=== PATIENT | female | born 1990 | race African-American/Black ===

== ENCOUNTER 2017-08-12 08:06 | Emergency (ER) | payer MEDICAID ==
[~2017-08-12] VITALS: Ht 180.3 cm; Wt 128.0 kg
[2017-08-12 08:18] VITALS: BP 126/83
[2017-08-12 09:49] LABS: CLARITY URINE CLOUDY (CLEAR); COLOR URINE DARK YELLOW (YELLOW); KETONES URINE TRACE (NEGATIVE); LEUKOCYTE ESTERASE URINE 2+ (NEGATIVE); NITRITE URINE NEGATIVE (NEGATIVE); OCCULT BLOOD URINE NEGATIVE (NEGATIVE); PH URINE 5.5 (4.5-8.0); PROTEIN URINE TRACE (NEGATIVE); SPECIFIC GRAVITY URINE 1.025 (1.005-1.030)
== END 2017-08-12 10:31 | disposition left against medical advice (07) ==
LOC: ER 09:23
DX: O23.42 Unspecified infection of urinary tract in pregnancy, second trimester (principal); Z3A.17 17 weeks gestation of pregnancy
CPT/HCPCS: 81003; 81025; 87086; 99284

== ENCOUNTER 2017-08-12 18:24 | Emergency (ER) | payer MEDICAID ==
[~2017-08-12] VITALS: Ht 185.4 cm; Wt 128.0 kg
[2017-08-12 19:09] VITALS: BP 129/74
== END 2017-08-12 23:27 | disposition left against medical advice (07) ==
LOC: ER 19:26
DX: O26.899 Other specified pregnancy related conditions, unspecified trimester (principal); R10.30 Lower abdominal pain, unspecified; Z3A.00 Weeks of gestation of pregnancy not specified

== ENCOUNTER 2018-10-01 13:22 | Emergency (ER) | payer MEDICAID, OTHER ==
[~2018-10-01] VITALS: Ht 182.9 cm; Wt 130.0 kg
[2018-10-01] MEDS ORDERED: ACETAMINOPHEN 325MG TABLET PO STA (15:44)
[2018-10-01 16:29] LABS: CLARITY URINE CLEAR (CLEAR); COLOR URINE YELLOW (YELLOW); KETONES URINE NEGATIVE (NEGATIVE); LEUKOCYTE ESTERASE URINE TRACE (NEGATIVE); NITRITE URINE NEGATIVE (NEGATIVE); OCCULT BLOOD URINE NEGATIVE (NEGATIVE); PH URINE 7.5 (4.5-8.0); PROTEIN URINE NEGATIVE (NEGATIVE); SPECIFIC GRAVITY URINE 1.006 (1.005-1.030); UROBILINOGEN URINE 0.2 E.U./dL (0.2-1.0)
[2018-10-01 17:43] LABS: BASOPHILS % 0.7 % (0.0-2.0); EOSINOPHILS % 2.2 % (0.0-5.0); HEMATOCRIT. 41.1 % (36.0-48.0); HEMOGLOBIN. 13.5 g/dL (12.0-16.0); LYMPHOCYTES % 28.8 % (20.0-50.0); MEAN CORPUSCULAR HEMOGLOBIN 25.3 pg (28.0-32.0); MEAN CORPUSCULAR VOLUME 76.9 fL (81.0-99.0); MEAN PLATELET VOLUME 8.8 fl (7.4-10.4); NEUTROPHILS % 60.3 % (40.0-76.0); PLATELET 269 x1000/uL (130-400); RED BLOOD CELL COUNT 5.35 mill/uL (4.2-5.4); RED CELL DISTRIBUTION WIDTH 17.9 % (11.6-14.6)
[2018-10-01 17:45] LABS: CHLORIDE 108 mEq/L (98-107)
[2018-10-01 18:13] VITALS: BP 122/86
== END 2018-10-01 18:14 | disposition home or self-care (01) ==
LOC: ER 13:22
DX: R10.30 Lower abdominal pain, unspecified (principal); R10.2 Pelvic and perineal pain; R42 Dizziness and giddiness; Z98.890 Other specified postprocedural states
CPT/HCPCS: 36415; 76830; 76856; 81025; 99284

== ENCOUNTER 2020-08-10 13:10 | Observation (INO) | payer OTHER | END 2020-08-10 14:30 | disposition home or self-care (01) | LOC: 8 EST LDRP 13:10 | PROVIDERS: ADMIT Obstetrics & Gynecology; ATTEND Obstetrics & Gynecology | DX: O34.63 Maternal care for abnormality of vagina, third trimester (principal); Z3A.33 33 weeks gestation of pregnancy | CPT/HCPCS: 59025; 76856; G0378; 99281 ==

== ENCOUNTER 2020-08-17 02:40 | Emergency (ER) | payer MEDICAID, OTHER ==
[~2020-08-17] VITALS: Ht 182.9 cm; Wt 148.0 kg
[2020-08-17 03:18] LABS: CLARITY URINE CLEAR (CLEAR); COLOR URINE YELLOW (YELLOW); KETONES URINE NEGATIVE (NEGATIVE); LEUKOCYTE ESTERASE URINE NEGATIVE (NEGATIVE); NITRITE URINE NEGATIVE (NEGATIVE); OCCULT BLOOD URINE NEGATIVE (NEGATIVE); PROTEIN URINE NEGATIVE (NEGATIVE); SPECIFIC GRAVITY URINE 1.012 (1.005-1.030); UROBILINOGEN URINE 0.2 E.U./dL (0.2-1.0)
[2020-08-17 05:18] VITALS: BP 165/99
[2020-08-18] MEDS ORDERED: IBUP-2028 MT (16:39)
== END 2020-08-17 05:19 | disposition home or self-care (01) ==
LOC: ER 02:40
DX: Z13.9 Encounter for screening, unspecified (principal); Z98.890 Other specified postprocedural states
CPT/HCPCS: 36415; 76856; 81003; 81025; 84702; 99284

== ENCOUNTER 2020-08-18 13:01 | Emergency (ER) | payer MEDICAID ==
[~2020-08-18] VITALS: Ht 152.4 cm; Wt 148.0 kg
[2020-08-18 14:00] LABS: BASOPHILS % 1.2 % (0.0-2.0); EOSINOPHILS % 1.5 % (0.0-5.0); HEMATOCRIT. 37.4 % (36.0-48.0); HEMOGLOBIN. 12.5 g/dL (12.0-16.0); LYMPHOCYTES % 24.7 % (20.0-50.0); MEAN CORPUSCULAR HEMOGLOBIN 25.1 pg (28.0-32.0); MEAN CORPUSCULAR VOLUME 75.1 fL (81.0-99.0); MEAN PLATELET VOLUME 8.4 fl (7.4-10.4); MONOCYTES % 7.9 % (2.0-8.0); NEUTROPHILS % 64.7 % (40.0-76.0); PLATELET 225 x1000/uL (130-400); RED BLOOD CELL COUNT 4.98 mill/uL (4.2-5.4); RED CELL DISTRIBUTION WIDTH 17.7 % (11.6-14.6)
[2020-08-18 14:07] LABS: CHLORIDE 108 mEq/L (98-107)
[2020-08-18 14:20] LABS: B-HCG QUANTITATIVE < 1 mIU/mL (<3)
[2020-08-18 15:21] LABS: CLARITY URINE CLEAR (CLEAR); COLOR URINE YELLOW (YELLOW); KETONES URINE TRACE (NEGATIVE); LEUKOCYTE ESTERASE URINE NEGATIVE (NEGATIVE); NITRITE URINE NEGATIVE (NEGATIVE); OCCULT BLOOD URINE NEGATIVE (NEGATIVE); PH URINE 5.5 (4.5-8.0); PROTEIN URINE NEGATIVE (NEGATIVE); SPECIFIC GRAVITY URINE 1.013 (1.005-1.030); UROBILINOGEN URINE 0.2 E.U./dL (0.2-1.0)
[2020-08-18] MEDS ORDERED: IBUP-2028 MT (16:39)
[2020-08-18 17:24] VITALS: BP 130/89
[2020-08-18] MEDS ORDERED: IOHEXOL-350 100 ML BOTTLE ONE (18:43)
== END 2020-08-18 17:37 | disposition home or self-care (01) ==
LOC: ER 13:45
DX: R10.9 Unspecified abdominal pain (principal); Z98.890 Other specified postprocedural states
CPT/HCPCS: 36415; 74177; 80053; 81003; 81025; 83690; 84702; 85025; 99284; Q9967

== ENCOUNTER 2022-08-11 06:53 | Emergency (ER) | payer MEDICAID, OTHER ==
[~2022-08-11] VITALS: Ht 177.8 cm; Wt 127.0 kg
[~2022-08-11 06:53] MED LIST: IBUP-2028 MT
[2022-08-11 07:35] VITALS: BP 132/82
== END 2022-08-11 10:30 | disposition home or self-care (01) ==
LOC: ER 06:53
DX: O26.891 Other specified pregnancy related conditions, first trimester (principal); Z3A.01 Less than 8 weeks gestation of pregnancy
CPT/HCPCS: 36415; 76801; 81025; 84702; 99284